=== PATIENT | female | born 1940 | race Hispanic/Latino ===

== ENCOUNTER 2018-01-30 07:54 | Day surgery (SDC) | payer MEDICARE ==
[2018-01-29 10:01] VITALS: BMI 20.5
[2018-01-30] MEDS ORDERED: Lactated Ringer's 500 ML IV SCH (09:00)
[2018-01-30] MEDS ORDERED: Propofol 10 mg/ml Inj (20 ML) ONE (09:07)
[2018-01-30] MEDS ORDERED: Lactated Ringer's 500 ML IV ONE (09:40)
[2018-01-30 10:44] VITALS: PULSE 54; RESP 15; TEMP 97
[2018-01-30 11:02] VITALS: BP 138/73; O2SAT 99
== END 2018-01-30 11:00 | disposition home or self-care (01) ==
LOC: C.ENDO 07:54
PROVIDERS: ATTEND Internal Medicine Gastroenterology
DX: R10.13 Epigastric pain (principal); K29.70 Gastritis, unspecified, without bleeding; I10 Essential (primary) hypertension; K21.9 Gastro-esophageal reflux disease without esophagitis
CPT/HCPCS: 43239; 88305; 88342; J2704; J7120

== ENCOUNTER 2019-03-20 09:11 | Day surgery (SDC) | payer MEDICARE ==
[2019-03-20 09:47] VITALS: BMI 18.8
[2019-03-20 09:56] VITALS: BP 128/70; PULSE 78; RESP 16; TEMP 98.8; O2SAT 95
== END 2019-03-20 10:20 | disposition still patient (30) ==
LOC: C.ENDO 09:11
PROVIDERS: ATTEND Internal Medicine Gastroenterology
DX: R10.13 Epigastric pain (principal); Z53.9 Procedure and treatment not carried out, unspecified reason

== ENCOUNTER 2019-03-20 10:17 | Observation (INO) | payer MEDICARE ==
[2019-03-20 10:17] VITALS: BMI 18.8
[2019-03-20 10:52] LABS: BASO % 0.7 % (0.0-2.0); HEMOGLOBIN 14.8 g/dL (11.0-16.0); LYMPH # 2.3 K/uL (1.0-4.3); MEAN CELL VOLUME 97.7 fL (81.0-99.0); MEAN CORPUSCULAR HEMOGLOBIN 33.7 pg (27.0-31.0); MEAN CORPUSCULAR HGB CONC 34.5 g/dL (33.0-37.0); MEAN PLATELET VOLUME 10.5 fL (7.2-11.7); MONO # 0.4 K/uL (0.0-0.8); NEUT # 2.8 K/uL (1.8-7.0); NEUT % 50.3 % (50.0-75.0); NRBC % 0.1 % (0.0-2.0); RBC 4.39 Mil/uL (3.80-5.20); RED CELL DISTRIBUTION WIDTH 13.2 % (11.5-14.5); WHITE BLOOD COUNT 5.6 K/uL (4.8-10.8)
--- NOTE | 2019-03-20 10:53 | C.PDOC ---
History Of Present Illness 79 year old female presents to ED with complaint of chest pain prior to arrival. Patient is s/p rapid response pending colonoscopy. Patient became anxious and complained of left sided chest pain. She describes the pain as sharp and r adiating to her left mid-back. Patient takes lorazepam 1mg TID daily. Patient reports not taking her dose of medication last night per pre-op prep. She has a PMHx of anxiety, dementia, gastritis, hypertension, and TIA. Patient denies SOB, palpitations, and light-headedness. 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 SP RAPID RESPONSE PENDING COLONOSCOPY, BECAME ANXIOUS CO L SIDED CP. SHARP, RADIATION L MID BACK. TAKES LORAZEPAM 1 MG TID DAILY, DID NOT TAKE DOSE LAST NIGHT PER PREOP PREP. NO SOB. PMHx of anxiety, dementia, gastritis, HTN, TIA EXAM NONTOXIC LUNGS CTA B/L NO W/R/R CV RRR PSYCH ANXIOUS BUT COOPERATIVE, APPROPRIATE NEURO INTACT REMIANDER NEG MDM L SIDED CP. ADMITTED 2018 @ [facility] NEG TROP X 3. HO ANXIETY. PT DENIES HO PRIOR CHEST PAIN. RO ACS VS ANXIETY REACTION SUBTHERAPEUTIC Time Seen by Provider: 03/20/19 10:50 Chief Complaint (Nursing): Chest Pain History Per: Patient History/Exam Limitations: no limitations Onset/Duration Of Symptoms: Hrs (1) Current Symptoms Are (Timing): Still Present Quality: "Pain" Associated Symptoms: denies: Nausea, Dyspnea Past Medical History Reviewed: Historical Data, Nursing Documentation, Vital Signs Vital Signs: Last Vital Signs Temp 97.5 F L 03/20/19 10:22 Pulse 78 03/20/19 10:40 Resp 22 03/20/19 10:40 BP 158/81 H 03/20/19 10:40 Pulse Ox 100 03/20/19 10:40 Primary Care Provider: Non [facility] Provider, - Medical History PMH: Alzheimer's Disease, Anxiety, Dementia, Gastritis, HTN, TIA Denies: Colonic Polyps, Fractures, Chronic Kidney Disease, Seizures, Sleep Apnea Surgical History: Endoscopy Family History: States: Unknown Family Hx - Social History Hx Alcohol Use: No Hx Substance Use: No - Immunization History Hx Tetanus Toxoid Vaccination: No Hx Influenza Vaccination: No Hx Pneumococcal Vaccination: No Review Of Systems Except As Marked, All Systems Reviewed And Found Negative. Cardiovascular: Positive for: Chest Pain (left-sided) Musculoskeletal: Positive for: Back Pain (left mid-back) Physical Exam - Physical Exam Appears: Well, Non-toxic, No Acute Distress Skin: Normal Color, Warm, Dry Head: Atraumatic, Normacephalic Eye(s): bilateral: Normal Inspection, PERRL, EOMI Neck: Normal ROM, Supple Chest: Symmetrical, No Deformity, No Tenderness Cardiovascular: Rhythm Regular, No Murmur Respiratory: No Accessory Muscle Use, No Rales, No Rhonchi, No Wheezing, Other (NARD) Gastrointestinal/Abdominal: Soft, No Tenderness Back: No Paraspinal Tenderness Extremity: Capillary Refill (<2 seconds) Extremity: Bilateral: Atraumatic, Normal Color And Temperature, Normal ROM Pulses: Left Radial: Normal, Right Radial: Normal Neurological/Psych: Oriented x3, Normal Speech, Normal Cognition, Normal Motor, Normal Sensation, Other (anxious, but cooperative, appropriate) ED Course And Treatment - Laboratory Results Result Diagrams: 03/20/19 10:47 03/20/19 10:47 ECG: Interpreted By Me ECG Rhythm: Sinus Rhythm ECG Interpretation: Normal Rate From EC O2 Sat by Pulse Oximetry: 100 (in RA) Pulse Ox Interpretation: Normal - Radiology CXR: Interpreted by Me, Viewed By In CXR Interpretation: Yes: No Acute Disease Nexus Criteria: Negative Progress Note: EKG and CXR ordered for patient. CMP, CBC, PTT, and prothrombin ordered for patient. Patient given Ativan and Nitro-Bid 2% ointment. Progress - Re-Evaluation Re-evaluation Note: 03/20/19 11:40 SP ATIVAN CP RESOLVED, APPEARS COMFORTABLE. D/W DR TAYLOR RUSSO [employer] WILL ADMIT - Data Reviewed Data Reviewed: Lab, Diagnostic imaging, EKG, Old records Medical Decision Making Medical Decision Making: Left sided chest pain. Patient admitted in 2018 at [facility]. Negative troponin x3. Patient has a history of anxiety. Patietn dneies history if prior chest pain. Rule out ACS vs Anxiety reaction subtherapeutic Disposition Counseled Patient/Family Regarding: Studies Performed, Diagnosis - Disposition Disposition: HOSPITALIZED Disposition Time: 11:41 Condition: STABLE Forms: [facility] (Bulgarian) - POA Present On Arrival: None - Clinical Impression Clinical Impression: Chest pain, Anxiety - Scribe Statement The provider has reviewed the documentation as recorded by the Scribe (Emiliana Sanchez) All medical record entries made by the Scribe were at my direction and personally dictated by me. I have reviewed the chart and agree that the record accurately reflects my personal performance of the history, physical exam, medical decision making, and the department course for this patient. I have also personally directed, reviewed, and agree with the discharge instructions and dis position.
[2019-03-20 11:00] LABS: INR 1.2; PARTIAL THROMBOPLASTIN TIME 29.5 SECONDS (21-34); PROTHROMBIN TIME 13.1 SECONDS (9.7-12.2)
[2019-03-20] MEDS ORDERED: Nitroglycerin 2% Ointment Foilpak UD TOP STA (11:02)
[2019-03-20 11:03] LABS: ALB/GLOB RATIO 1.5 (1.0-2.1); ALBUMIN 4.9 g/dL (3.5-5.0); BLOOD UREA NITROGEN 14 mg/dL (7-17); CALCIUM 9.4 mg/dl (8.6-10.4); GFR NON-AFRICAN AMERICAN > 60
[2019-03-20 11:12] LABS: ALT/SGPT 15 U/L (9-52); AST/SGOT 36 U/L (14-36)
[2019-03-20] MEDS ORDERED: Nitroglycerin 2% Ointment Foilpak UD TOP ONE (11:12)
[2019-03-20 11:16] LABS: B-TYPE NATRIURETIC PEPTIDE 364 pg/mL (0-900); CK-MB 0.41 ng/mL (0.0-3.38)
[2019-03-20 11:32] VITALS: RESP 20
--- NOTE | 2019-03-20 11:42 | RAD ---
HISTORY: PAIN COMPARISON: None available TECHNIQUE: Chest, one view. FINDINGS: LUNGS: Emphysematous changes. No focal consolidation. Please note that chest x-ray has limited sensitivity for the detection of pulmonary masses. PLEURA: No significant pleural effusion identified. No definite pneumothorax . CARDIOVASCULAR: Heart size appears top normal. Atherosclerotic calcification present. OSSEOUS STRUCTURES: Osseous demineralization. Degenerative changes. Acromioclavicular arthropathy. VISUALIZED UPPER ABDOMEN: Unremarkable. OTHER FINDINGS: None. IMPRESSION: Emphysematous changes.
--- NOTE | 2019-03-20 12:07 | CP.PCM.HP ---
History of Present Illness - History of Present Illness History of Present Illness: 79 year old female presents to ED with complaint of chest pain prior to arrival. Patient is s/p rapid response pending colonoscopy. Patient became anxious and complained of left sided chest pain. She describes the pain as sharp and rad iating to her left mid-back. Patient takes lorazepam 1mg TID daily Has h/o TIA, HTN Was admitted in [facility] [id number] , no cardiac w/u done Present on Admission - Present on Admission Any Indicators Present on Admission: No Review of Systems - Review of Systems All systems: reviewed and no additional remarkable complaints except (anxoius and no further cp) Past Patient History - Past Medical History & Family History Past Medical History?: Yes - Past Social History Smoking Status: Never Smoked - CARDIAC Hx Hypertension: Yes - PULMONARY Hx Sleep Apnea: No - NEUROLOGICAL Hx Alzheimer's Disease: Yes Hx Dementia: Yes Hx Seizures: No Hx Transient Ischemic Attacks (TIA): Yes - HEENT Hx HEENT Problems: Yes Hx Cataracts: Yes - RENAL Hx Chronic Kidney Disease: No - ENDOCRINE/METABOLIC Hx Endocrine Disorders: No - HEMATOLOGICAL/ONCOLOGICAL Hx Blood Disorders: No Hx Blood Transfusions: No - INTEGUMENTARY Hx Dermatological Problems: No - MUSCULOSKELETAL/RHEUMATOLOGICAL Hx Fractures: No - GASTROINTESTINAL Hx Gastritis: Yes - GENITOURINARY/GYNECOLOGICAL Hx Genitourinary Disorders: No - PSYCHIATRIC Hx Anxiety: Yes Hx Substance Use: No - SURGICAL HISTORY Hx Surgeries: Yes - ANESTHESIA Hx Anesthesia: Yes (IV SEDATION ONLY) Meds Allergies/Adverse Reactions: Allergies Allergy/AdvReac Type Severity Reaction Status Date / Time No Known Allergies Allergy Verified 03/20/19 10:22 Physical Exam - Constitutional Appears: Well - Head Exam Head Exam: ATRAUMATIC, NORMAL INSPECTION, NORMOCEPHALIC - Eye Exam Eye Exam: EOMI, Normal appearance, PERRL - ENT Exam ENT Exam: Mucous Membranes Moist, Normal Exam - Neck Exam Neck exam: Positive for: Normal Inspection - Respiratory Exam Respiratory Exam: Clear to Auscultation Bilateral, NORMAL BREATHING PATTERN - Cardiovascular Exam Cardiovascular Exam: REGULAR RHYTHM - GI/Abdominal Exam GI & Abdominal Exam: Normal Bowel Sounds, Soft. absent: Tenderness - Extremities Exam Extremities exam: Positive for: normal inspection - Back Exam Back exam: NORMAL INSPECTION - Neurological Exam Neurological exam: Alert, CN II-XII Intact, Oriented x3 Results - Vital Signs Recent Vital Signs: Last Vital Signs Temp 97.5 F L 03/20/19 10:22 Pulse 69 03/20/19 11:31 Resp 20 03/20/19 11:31 BP 138/82 03/20/19 11:31 Pulse Ox 100 03/20/19 11:42 - Labs Result Diagrams: 03/20/19 10:47 03/20/19 10:47 Labs: Laboratory Results - last 24 hr 03/20/19 03/20/19 03/20/19 10:47 10:47 10:47 WBC 5.6 RBC 4.39 Hgb 14.8 Hct 42.9 MCV 97.7 MCH 33.7 H MCHC 34.5 RDW 13.2 Plt Count 149 MPV 10.5 Neut % (Auto) 50.3 Lymph % (Auto) 41.0 H [place] % (Auto) 8.0 Eos % (Auto) 0.0 Baso % (Auto) 0.7 Neut # (Auto) 2.8 Lymph # (Auto) 2.3 [place] # (Auto) 0.4 Eos # (Auto) 0.0 Baso # (Auto) 0.0 PT 13.1 H INR 1.2 APTT 29.5 Sodium 139 Potassium 4.2 Chloride 104 Carbon Dioxide 19 L Anion Gap 20 BUN 14 Creatinine 0.7 Est GFR ( Amer) > 60 Est GFR (Non-Af Amer) > 60 Random Glucose 111 H Calcium 9.4 Total Bilirubin 0.9 AST 36 D ALT 15 Alkaline Phosphatase 90 Total Creatine Kinase 29 L CK-MB (Mass) 0.41 Troponin I < 0.0120 NT-Pro-B Natriuret Pep 364 Total Protein 8.3 Albumin 4.9 Globulin 3.3 Albumin/Globulin Ratio 1.5 Assessment & Plan (1) CAD (coronary artery disease) Status: Acute (2) Chest pain Status: Acute (3) Hypertension Status: Chronic (4) Anxiety Status: Acute
--- NOTE | 2019-03-20 15:27 | CARD ---
APPROVED REPORT Date of service: 03/20/2019 EXAM: Two-dimensional and M-mode echocardiogram with Doppler and color Doppler. INDICATION CVA/TIA Chest Pain RISK FACTORS Hypertension 2D DIMENSIONS IVSd1.0 (0.7-1.1cm)LVDd3.8 (3.9-5.9cm) PWd0.9 (0.7-1.1cm)LA Rvlqqi92 (18-58mL) LVDs2.4 (2.5-4.0cm)FS (%) 36.2 % LVEF (%)66.6 (>50%)LVEF (Landa's)70.95 % M-Mode DIMENSIONS Left Atrium (MM)2.52 (2.5-4.0cm)IVSd0.88 (0.7-1.1cm) Aortic Root4.27 (2.2-3.7cm)LVDd4.15 (4.0-5.6cm) Aortic Cusp Exc.1.97 (1.5-2.0cm)PWd0.75 (0.7-1.1cm) FS (%) 41 %LVDs2.43 (2.0-3.8cm) LVEF (%)73 (>50%) Aortic Valve AI P 1/2 [id number] Mitral Valve MV E Bwxnayqa97.8cm/sMV A Ieewrvsp28.6cm/sE/A ratio0.8 TDI Lateral E' Peak V5.45cm/sMedial E' Peak V6.22cm/sE/Lateral E'9.3 E/Medial E'8.2 Tricuspid Valve TR Peak Ywrhmbfr510im/sTR Peak Gr.[id number] LEFT VENTRICLE The left ventricle is normal size. There is normal left ventricular wall thickness. The left ventricular function is normal. The left ventricular ejection fraction is within the normal range. No regional wall motion abnormalities noted. The left ventricular diastolic function is normal. No left ventricle thrombus noted on this study. There is no ventricular septal defect visualized. There is no left ventricular aneurysm. There is no mass noted in the left ventricle. RIGHT VENTRICLE The right ventricle is normal size. There is normal right ventricular wall thickness. The right ventricular systolic function is normal. ATRIA The left atrium size is normal. The right atrium size is normal. The interatrial septum is intact with no evidence for an atrial septal defect. AORTIC VALVE The aortic valve is normal in structure and function. There is mild aortic regurgitation. There is no aortic valvular stenosis. There is no aortic valvular vegetation. MITRAL VALVE The mitral valve is normal in structure and function. There is no evidence of mitral valve prolapse. There is no mitral valve stenosis. Mitral regurgitation is mild. TRICUSPID VALVE The tricuspid valve is normal in structure and function. There is mild tricuspid regurgitation. Right ventricular systolic pressure is estimated at less than 30 mmHg. There is no tricuspid valve prolapse or vegetation. There is no tricuspid valve stenosis. PULMONIC VALVE The pulmonary valve is normal in structure and function. There is no pulmonic valvular regurgitation. There is no pulmonic valvular stenosis. GREAT VESSELS The aortic root is mildly enlarged. . The pulmonary artery is normal. The IVC is normal in size and collapses >50% with inspiration. PERICARDIAL EFFUSION The pericardium appears normal. There is no pleural effusion. <Conclusion> The left ventricular function is normal. The left ventricular ejection fraction is within the normal range. No regional wall motion abnormalities noted. There is mild aortic regurgitation. Mitral regurgitation is mild. The aortic root is mildly enlarged.
[2019-03-20] MEDS ORDERED: Apap-Butalbital-Caffeine 325-50-40mg Tab PO PRN (17:11)
[2019-03-20] MEDS ORDERED: Apap-Butalbital-Caffeine 325-50-40mg Tab PO SCH (18:00)
[2019-03-20 21:39] LABS: CK-MB 0.66 ng/mL (0.0-3.38)
[2019-03-21 00:42] VITALS: O2SAT 97
[2019-03-21 03:29] LABS: CK-MB 0.84 ng/mL (0.0-3.38)
--- NOTE | 2019-03-21 09:19 | CP.PCM.CON ---
<Mamta Kirk - Last Filed: 03/21/19 09:15> History of Present Illness - History of Present Illness History of Present Illness: GI Fellow PGY 5 Consult Note 79 year old female with history of HTN, GERD who was scheduled for a colonoscopy but complained of chest pain. SOB and had alot of anxiety prior to exam so sent to the ER. Pt was previously seen in the office for evaluation of abdominal p ain. She states that she continues to have ongoing, daily epigastric, cramping abdominal pain. She cannot pinpoint triggers of pain and only notes occasional worsening of symptoms with meals. She does not have improvement with defecation. Patient became concerned when her stool became dark black recently but admits to frequent Pepto Bismol use along with occasional iron supplementation. She also n otes a 7 pound weight loss over past 8 months. 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 Last colonoscopy was approximately 3 years ago and unremarkable per patient (no records available for review). ROS: A12pt ROS was negative excpet as above PmHx: As stated in HPI PsHx: Denies SHx: Neg for etoh, drugs, tobacco FHx: Neg for GI issues Past Patient History - Past Medical History & Family History Past Medical History?: Yes - Past Social History Smoking Status: Never Smoked - CARDIAC Hx Hypertension: Yes - PULMONARY Hx Sleep Apnea: No - NEUROLOGICAL Hx Alzheimer's Disease: Yes Hx Dementia: Yes Hx Seizures: No Hx Transient Ischemic Attacks (TIA): Yes - HEENT Hx HEENT Problems: Yes Hx Cataracts: Yes - RENAL Hx Chronic Kidney Disease: No - ENDOCRINE/METABOLIC Hx Endocrine Disorders: No - HEMATOLOGICAL/ONCOLOGICAL Hx Blood Disorders: No Hx Blood Transfusions: No - INTEGUMENTARY Hx Dermatological Problems: No - MUSCULOSKELETAL/RHEUMATOLOGICAL Hx Fractures: No - GASTROINTESTINAL Hx Gastritis: Yes - GENITOURINARY/GYNECOLOGICAL Hx Genitourinary Disorders: No - PSYCHIATRIC Hx Anxiety: Yes Hx Substance Use: No - SURGICAL HISTORY Hx Surgeries: Yes - ANESTHESIA Hx Anesthesia: Yes (IV SEDATION ONLY) Meds Allergies/Adverse Reactions: Allergies Allergy/AdvReac Type Severity Reaction Status Date / Time No Known Allergies Allergy Verified 03/20/19 10:22 - Medications Medications: Current Medications Acetaminophen/Butalbital/Caffeine (Fioricet) 1 tab PO Q6 PRN PRN Reason: Pain, moderate (4-7) Amitriptyline HCl (Elavil) 10 mg PO HS [facility] Last Admin: 03/20/19 21:48 Dose: 10 mg Amlodipine Besylate (Norvasc) 5 mg PO DAILY [facility] Donepezil HCl (Aricept) 10 mg PO DAILY [facility] Famotidine (Pepcid) 20 mg PO BID [facility] Last Admin: 03/20/19 17:09 Dose: 20 mg Ferrous Sulfate (Feosol) 325 mg PO DAILY [facility] Hydrochlorothiazide (Microzide) 12.5 mg PO DAILY [facility] Lisinopril (Zestril) 20 mg PO DAILY [facility] Lorazepam (Ativan) 1 mg PO Q8 PRN PRN Reason: Anxiety Memantine (Namenda) 10 mg PO Q12 [facility] Last Admin: 03/20/19 21:46 Dose: 10 mg Metoprolol Succinate (Toprol Xl) 100 mg PO DAILY [facility] Nitrofurantoin Macrocrystals (Macrobid) 100 mg PO Q12 [facility]; Protocol Last Admin: 03/20/19 21:46 Dose: 100 mg Tramadol HCl (Ultram) 50 mg PO BID PRN PRN Reason: Pain, severe (8-10) Zolpidem Tartrate (Ambien) 5 mg PO HS [facility] Last Admin: 03/20/19 21:46 Dose: 5 mg Physical Exam - Constitutional Appears: Non-toxic, No Acute Distress - Head Exam Head Exam: ATRAUMATIC, NORMAL INSPECTION, NORMOCEPHALIC - Eye Exam Eye Exam: EOMI, Normal appearance, PERRL - ENT Exam ENT Exam: Mucous Membranes Moist, Normal Exam - Neck Exam Neck exam: Positive for: Normal Inspection - Respiratory Exam Respiratory Exam: Clear to Auscultation Bilateral, NORMAL BREATHING PATTERN - Cardiovascular Exam Cardiovascular Exam: REGULAR RHYTHM, RRR, +S1, +S2 - GI/Abdominal Exam GI & Abdominal Exam: Normal Bowel Sounds, Soft. absent: Distended, Firm, Guarding, Tenderness - Rectal Exam Rectal Exam: Deferred - Extremities Exam Extremities exam: Positive for: full ROM, normal inspection - Neurological Exam Neurological exam: Alert, Oriented x3 - Psychiatric Exam Psychiatric exam: Normal Affect, Normal Mood - Skin Skin Exam: Dry, Intact, Normal Color, Warm Results - Vital Signs Recent Vital Signs: Last Vital Signs Temp 97.8 F 03/20/19 23:00 Pulse 59 L 03/20/19 23:30 Resp 20 03/20/19 23:00 BP 136/80 03/20/19 23:00 Pulse Ox 97 03/20/19 23:00 - Labs Result Diagrams: 03/20/19 10:47 03/20/19 10:47 Labs: Laboratory Results - last 24 hr 03/20/19 03/20/19 03/20/19 10:47 10:47 10:47 WBC 5.6 RBC 4.39 Hgb 14.8 Hct 42.9 MCV 97.7 MCH 33.7 H MCHC 34.5 RDW 13.2 Plt Count 149 MPV 10.5 Neut % (Auto) 50.3 Lymph % (Auto) 41.0 H [place] % (Auto) 8.0 Eos % (Auto) 0.0 Baso % (Auto) 0.7 Neut # (Auto) 2.8 Lymph # (Auto) 2.3 [place] # (Auto) 0.4 Eos # (Auto) 0.0 Baso # (Auto) 0.0 PT 13.1 H INR 1.2 APTT 29.5 Sodium 139 Potassium 4.2 Chloride 104 Carbon Dioxide 19 L Anion Gap 20 BUN 14 Creatinine 0.7 Est GFR ( Amer) > 60 Est GFR (Non-Af Amer) > 60 Random Glucose 111 H Calcium 9.4 Total Bilirubin 0.9 AST 36 D ALT 15 Alkaline Phosphatase 90 Total Creatine Kinase 29 L CK-MB (Mass) 0.41 Troponin I < 0.0120 NT-Pro-B Natriuret Pep 364 Total Protein 8.3 Albumin 4.9 Globulin 3.3 Albumin/Globulin Ratio 1.5 03/20/19 03/21/19 19:47 02:40 WBC RBC Hgb Hct MCV MCH MCHC RDW Plt Count MPV Neut % (Auto) Lymph % (Auto) [place] % (Auto) Eos % (Auto) Baso % (Auto) Neut # (Auto) Lymph # (Auto) [place] # (Auto) Eos # (Auto) Baso # (Auto) PT INR APTT Sodium Potassium Chloride Carbon Dioxide Anion Gap BUN Creatinine Est GFR ( Amer) Est GFR (Non-Af Amer) Random Glucose Calcium Total Bilirubin AST ALT Alkaline Phosphatase Total Creatine Kinase 31 33 CK-MB (Mass) 0.66 0.84 Troponin I < 0.0120 < 0.0120 NT-Pro-B Natriuret Pep Total Protein Albumin Globulin Albumin/Globulin Ratio Assessment & Plan - Assessment and Plan (Free Text) Assessment: 1. Abdominal Pain 2. Atrophic Gastritis 3. Constipation Plan: -Continue supportive care -Pt was scheduled for colonoscopy for abdominal pain -No plan at this time to repeat procedure -Will need a colonoscopy once cardiac workup completed -Bowel regimen for constipation -Advance diet as tolerated -Will continue to monitor <Renato Galvan - Last Filed: 03/21/19 17:04> Meds - Medications Medications: Current Medications Acetaminophen/Butalbital/Caffeine (Fioricet) 1 tab PO Q6 PRN PRN Reason: Pain, moderate (4-7) Amitriptyline HCl (Elavil) 10 mg PO HS [facility] Last Admin: 03/20/19 21:48 Dose: 10 mg Amlodipine Besylate (Norvasc) 5 mg PO DAILY [facility] Last Admin: 03/21/19 11:32 Dose: Not Given Donepezil HCl (Aricept) 10 mg PO DAILY [facility] Last Admin: 03/21/19 11:30 Dose: 10 mg Famotidine (Pepcid) 20 mg PO BID [facility] Last Admin: 03/21/19 11:17 Dose: 20 mg Ferrous Sulfate (Feosol) 325 mg PO DAILY [facility] Last Admin: 03/21/19 11:28 Dose: 325 mg Hydrochlorothiazide (Microzide) 12.5 mg PO DAILY [facility] Last Admin: 03/21/19 11:22 Dose: 12.5 mg Lisinopril (Zestril) 20 mg PO DAILY [facility] Last Admin: 03/21/19 11:32 Dose: Not Given Lorazepam (Ativan) 1 mg PO Q8 PRN PRN Reason: Anxiety Memantine (Namenda) 10 mg PO Q12 [facility] Last Admin: 03/21/19 11:17 Dose: 10 mg Metoprolol Succinate (Toprol Xl) 100 mg PO DAILY [facility] Last Admin: 03/21/19 11:32 Dose: Not Given Nitrofurantoin Macrocrystals (Macrobid) 100 mg PO Q12 [facility]; Protocol Last Admin: 03/21/19 11:27 Dose: 100 mg Tramadol HCl (Ultram) 50 mg PO BID PRN PRN Reason: Pain, severe (8-10) Zolpidem Tartrate (Ambien) 5 mg PO HS [facility] Last Admin: 03/20/19 21:46 Dose: 5 mg Results - Vital Signs Recent Vital Signs: Last Vital Signs Temp 98.9 F 03/21/19 15:00 Pulse 73 03/21/19 15:00 Resp 20 03/21/19 15:00 BP 117/76 03/21/19 15:00 Pulse Ox 97 03/21/19 15:00 - Labs Result Diagrams: 03/20/19 10:47 03/20/19 10:47 Labs: Laboratory Results - last 24 hr 03/20/19 03/21/19 03/21/19 19:47 02:40 10:57 Total Creatine Kinase 31 33 37 CK-MB (Mass) 0.66 0.84 0.63 Troponin I < 0.0120 < 0.0120 < 0.0120 Attending/Attestation - Attestation I have personally seen and examined this patient.: Yes I have fully participated in the care of the patient.: Yes I have reviewed all pertinent clinical information: Yes Notes (Text): 03/21/19 16:59 I have seen and examined patient with GI fellow. Agree with above documentation with the following additions. In brief, this is a 79 year old female with history of HTN, GERD, chronic constipation and abdominal pain who was scheduled for elective outpatient colonoscopy yesterday. Prior to beginning procedure, she began to develop sharp L sided "knife-like" chest pain along with diaphoresis and she was sent to ER for further cardiac evaluation. She admits to anxiety/panic and takes occasional medication for symptom control. Today her chest pain has resolved but she continues to report sharp epigastric and RUQ abdominal pain. She has not had a bowel movement for the past 2 days and otherwise denies nausea, vomiting, fever/chills, rectal bleeding. She does r eport a weight loss of nearly 7 pounds over the past few months. Additional physical examination: Abdomen: no palpable hepato/splenomegaly HTN GERD Constipation Abdominal pain Chest pain - resolved - Diet as tolerated - Follow up cardiology recommendations, echocardiogram report reviewed by me, normal EF without wall motion abnormalities - Maintain bowel regimen to prevent constipation - Continue with PPI therapy - Will plan for outpatient elective colonoscopy following completion of cardiac workup
[2019-03-21] MEDS ORDERED: Metoprolol Succinate 100 mg XL Tab PO SCH (10:00)
--- NOTE | 2019-03-21 10:28 | CP.PCM.PN ---
Subjective - Date & Time of Evaluation Date of Evaluation: 03/21/19 Time of Evaluation: 10:27 - Subjective Subjective: NO CP VS STABLE P/E REMAINS SAME ROS , NEG TNI NEG ECHO NEG FOR WALL MOTION ABNORMALITY Objective - Vital Signs/Intake and Output Vital Signs (last 24 hours): Temp Pulse Resp BP Pulse Ox 97.8 F 59 L 20 136/80 97 03/20/19 23:00 03/20/19 23:30 03/20/19 23:00 03/20/19 23:00 03/20/19 23:00 - Medications Medications: Current Medications Acetaminophen/Butalbital/Caffeine (Fioricet) 1 tab PO Q6 PRN PRN Reason: Pain, moderate (4-7) Amitriptyline HCl (Elavil) 10 mg PO HS [facility] Last Admin: 03/20/19 21:48 Dose: 10 mg Amlodipine Besylate (Norvasc) 5 mg PO DAILY [facility] Donepezil HCl (Aricept) 10 mg PO DAILY [facility] Famotidine (Pepcid) 20 mg PO BID [facility] Last Admin: 03/20/19 17:09 Dose: 20 mg Ferrous Sulfate (Feosol) 325 mg PO DAILY [facility] Hydrochlorothiazide (Microzide) 12.5 mg PO DAILY [facility] Lisinopril (Zestril) 20 mg PO DAILY [facility] Lorazepam (Ativan) 1 mg PO Q8 PRN PRN Reason: Anxiety Memantine (Namenda) 10 mg PO Q12 [facility] Last Admin: 03/20/19 21:46 Dose: 10 mg Metoprolol Succinate (Toprol Xl) 100 mg PO DAILY [facility] Nitrofurantoin Macrocrystals (Macrobid) 100 mg PO Q12 [facility]; Protocol Last Admin: 03/20/19 21:46 Dose: 100 mg Tramadol HCl (Ultram) 50 mg PO BID PRN PRN Reason: Pain, severe (8-10) Zolpidem Tartrate (Ambien) 5 mg PO HS [facility] Last Admin: 03/20/19 21:46 Dose: 5 mg - Labs Labs: 03/20/19 10:47 03/20/19 10:47 PT 13.1 SECONDS (9.7-12.2) H 03/20/19 10:47 INR 1.2 03/20/19 10:47 APTT 29.5 SECONDS (21-34) 03/20/19 10:47 Assessment and Plan (1) CAD (coronary artery disease) Status: Acute (2) Chest pain Status: Acute (3) Hypertension Status: Chronic (4) Anxiety Status: Acute
[2019-03-21 11:33] LABS: CK-MB 0.63 ng/mL (0.0-3.38)
[2019-03-21 16:44] VITALS: BP 117/76; PULSE 73; TEMP 98.9
--- NOTE | 2019-03-22 12:10 | CP.PCM.DIS ---
Provider - Provider Date of Admission: 03/20/19 11:56 Attending physician: Jeremiah Lopez MD Consults: 03/20/19 23:53 Gastroenterology Consult Routine Comment: Consulting Provider: Renato Galvan Consulting Physician: Renato Galvan Reason for Consult: abdominal pain Time Spent in preparation of Discharge (in minutes): 35 Diagnosis - Discharge Diagnosis (1) CAD (coronary artery disease) Status: Acute (2) Chest pain Status: Acute (3) Hypertension Status: Chronic (4) Anxiety Status: Acute Hospital Course - Lab Results Lab Results: Most Recent Lab Values WBC 5.6 K/uL (4.8-10.8) 03/20/19 10:47 RBC 4.39 Mil/uL (3.80-5.20) 03/20/19 10:47 Hgb 14.8 g/dL (11.0-16.0) 03/20/19 10:47 Hct 42.9 % (34.0-47.0) 03/20/19 10:47 MCV 97.7 fL (81.0-99.0) 03/20/19 10:47 MCH 33.7 pg (27.0-31.0) H 03/20/19 10:47 MCHC 34.5 g/dL (33.0-37.0) 03/20/19 10:47 RDW 13.2 % (11.5-14.5) 03/20/19 10:47 Plt Count 149 K/uL (130-400) 03/20/19 10:47 MPV 10.5 fL (7.2-11.7) 03/20/19 10:47 Neut % (Auto) 50.3 % (50.0-75.0) 03/20/19 10:47 Lymph % (Auto) 41.0 % (20.0-40.0) H 03/20/19 10:47 Haines % (Auto) 8.0 % (0.0-10.0) 03/20/19 10:47 Eos % (Auto) 0.0 % (0.0-4.0) 03/20/19 10:47 Baso % (Auto) 0.7 % (0.0-2.0) 03/20/19 10:47 Neut # (Auto) 2.8 K/uL (1.8-7.0) 03/20/19 10:47 Lymph # (Auto) 2.3 K/uL (1.0-4.3) 03/20/19 10:47 Haines # (Auto) 0.4 K/uL (0.0-0.8) 03/20/19 10:47 Eos # (Auto) 0.0 K/uL (0.0-0.7) 03/20/19 10:47 Baso # (Auto) 0.0 K/uL (0.0-0.2) 03/20/19 10:47 PT 13.1 SECONDS (9.7-12.2) H 03/20/19 10:47 INR 1.2 03/20/19 10:47 APTT 29.5 SECONDS (21-34) 03/20/19 10:47 Sodium 139 mmol/L (132-148) 03/20/19 10:47 Potassium 4.2 mmol/L (3.6-5.2) 03/20/19 10:47 Chloride 104 mmol/L (98-107) 03/20/19 10:47 Carbon Dioxide 19 mmol/L (22-30) L 03/20/19 10:47 Anion Gap 20 (10-20) 03/20/19 10:47 BUN 14 mg/dL (7-17) 03/20/19 10:47 Creatinine 0.7 mg/dL (0.7-1.2) 03/20/19 10:47 Est GFR ( Amer) > 60 03/20/19 10:47 Est GFR (Non-Af Amer) > 60 03/20/19 10:47 Random Glucose 111 mg/dL (65-105) H 03/20/19 10:47 Calcium 9.4 mg/dl (8.6-10.4) 03/20/19 10:47 Total Bilirubin 0.9 mg/dL (0.2-1.3) 03/20/19 10:47 AST 36 U/L (14-36) D 03/20/19 10:47 ALT 15 U/L (9-52) 03/20/19 10:47 Alkaline Phosphatase 90 U/L (38-126) 03/20/19 10:47 Total Creatine Kinase 37 U/L (30-135) 03/21/19 10:57 CK-MB (Mass) 0.63 ng/mL (0.0-3.38) 03/21/19 10:57 Troponin I < 0.0120 ng/mL (0.00-0.120) 03/21/19 10:57 NT-Pro-B Natriuret Pep 364 pg/mL (0-900) 03/20/19 10:47 Total Protein 8.3 g/dL (6.3-8.3) 03/20/19 10:47 Albumin 4.9 g/dL (3.5-5.0) 03/20/19 10:47 Globulin 3.3 gm/dL (2.2-3.9) 03/20/19 10:47 Albumin/Globulin Ratio 1.5 (1.0-2.1) 03/20/19 10:47 - Hospital Course Hospital Course: 79 year old female presents to ED with complaint of chest pain prior to arrival. Patient is s/p rapid response pending colonoscopy. Patient became anxious and complained of left sided chest pain. She describes the pain as sharp and radiating to her left mid-back. Patient takes lorazepam 1mg TID daily Has h/o TIA, HTN Was admitted in [facility] [id number] , no cardiac w/u done 3 SETS OF CARDIAC ENZ WERE NEG ECHO: NO WALL MOTION ABN PT HAD NO FURTHER CP D/C AND OUT PT STRESS TEST D/W GI Discharge Exam - Head Exam Head Exam: ATRAUMATIC, NORMAL INSPECTION, NORMOCEPHALIC Discharge Plan - Discharge Medications Prescriptions: Polyethylene Glycol 3350 [Miralax] 17 gm PO DAILY 30 Days ml Pantoprazole [Protonix] 40 mg PO DAILY #30 ect - Follow Up Plan Condition: STABLE Disposition: HOME/ ROUTINE Instructions: Polyethylene Glycol 3350, Heart Healthy Diet, Chest Pain (DC), Coronary Heart Disease (DC), Pantoprazole Additional Instructions: Please follow up with Dr. Lopez office in 1 week- call and make appointment Please follow up with Dr. Cole Gross office - call and make appointment Please resume all home medications Referrals: Renato Galvan MD [Staff Provider] - Jeremiah Lopez MD [Staff Provider] -
--- NOTE | 2019-03-22 14:09 | CARD ---
APPROVED REPORT Date of service: 03/20/2019 EKG Measurement Heart [id number] <Conclusion> Normal sinus rhythm Left anterior fascicular block,incomplete rbbb Abnormal ECG
== END 2019-03-21 18:46 | disposition home or self-care (01) ==
LOC: C.ER 10:17 → C.6T 11:56
PROVIDERS: ADMIT Internal Medicine Cardiovascular Disease; ATTEND Internal Medicine Cardiovascular Disease
DX: I25.10 Atherosclerotic heart disease of native coronary artery without angina pectoris (principal); R07.9 Chest pain, unspecified; I10 Essential (primary) hypertension; F41.9 Anxiety disorder, unspecified; K29.40 Chronic atrophic gastritis without bleeding; K59.00 Constipation, unspecified; K21.9 Gastro-esophageal reflux disease without esophagitis; R94.31 Abnormal electrocardiogram [ECG] [EKG]; I45.2 Bifascicular block; Z86.73 Personal history of transient ischemic attack (TIA), and cerebral infarction without residual deficits; F02.80 Dementia in other diseases classified elsewhere, unspecified severity, without behavioral disturbance, psychotic disturbance, mood disturbance, and anxiety; G30.9 Alzheimer's disease, unspecified
CPT/HCPCS: 36415; 71045; 80053; 83880; 84484; 85025; 85610; 85730; 93005; 93306; 99285; G0378